=== PATIENT | male | born 1990 | race Caucasian/White ===

== ENCOUNTER 2022-04-02 12:59 | Emergency (ER) | payer MEDICAID, SELFPAY ==
[2022-04-02 13:00] VITALS: BP 146/103; PULSE 115; RESP 18; TEMP 36.6; O2SAT 99; BMI 23.6
--- NOTE | 2022-04-02 13:40 | EDS_ITS ---
HPI History of Present Illness Chief Complaint: Dental Detail of Chief Complaint: Left lower jaw dental pain for weeks. Informant: patient Onset/Context/Timing Onset: Weeks Context: Gradual Onset Timing: Continuous Current Severity: Mild Maximum Severity: Mild Associated Symptoms Assocated Symptom - Dental: jaw swelling; Negative for fever, face swelling, cold sensitivity or hot sensitivity Narrative Narrative: 31-year-old male no seen past medical history. States he has very poor dentition. Has had left lower jaw dental pain and mild swelling. Was seen in urgent care several weeks ago and started on antibiotic and he is finished that now and is complaining recurrent pain. Denies any fever or chills. No nausea, vomiting or diarrhea. Reportedly may have a penicillin allergy. Prior similar symptoms: Yes Recent Illness/Hospitalization: No PFSH PFSH Medical History no medical history no medical history Home Medications cephalexin 500 mg capsule 500 mg PO TID #30 caps 02/22/22 [Rx Last Taken Unknown] clindamycin HCl 150 mg capsule (Cleocin HCl) 300 mg PO Q6H 10 days #80 caps 04/02/22 [Rx Last Taken Unknown] Allergy/AdvReac Type Severity Reaction Status Date / Time Penicillins Allergy Other Verified 04/02/22 13:02 Surgical History H/O knee surgery Social History Smoking Status: Current every day smoker tobacco type: cigarettes alcohol intake: current alcohol intake frequency: other ROS ROS ED ROS Narrative Dental pain. Review of Systems ROS Unobtainable: Denies due to encephalopathy Constitutional Constitutional ED: Denies chills or fever(s) Eyes Eyes: Denies blurry vision ENT ENT ED: Denies ear pain Cardiovascular Cardiovascular: Denies chest pain or palpitations Respiratory/Chest Respiratory/Chest: Denies cough or dyspnea Gastrointestinal Gastrointestinal: Denies abdominal pain Genitourinary Genitourinary ED: Denies dysuria or hematuria Musculoskeletal Musculoskeletal: Denies arthralgias Integumentary Denies abscess or Abrasions Neurologic Neurologic: Denies headache(s) Psychiatric Psychiatric: Denies anxiety Endocrine Endocrinology: Denies cold intolerance Hematologic/Lymphatic Hematologic/Lymphatic: Denies easy bleeding Allergic/Immunologic Allergic/Immunologic ED: Reports mouth swelling; Denies tongue swelling EXAM Physical Exam Narrative Exam Narrative: 31-year-old male. Vital signs stable afebrile. H EENT exam he has no upper dentition. His lower dentition is in very poor shape. Multiple missing teeth. Decaying teeth. Cavities. No abscess. Gingival swelling. Nothing to drain. Minimal swelling at the left lower jaw. No trouble opening or closing his mouth. No trismus. The floor of his mouth is nontender nonswollen. Posterior pharynx is normal. No trouble swallowing or breathing. Neck nontender no lymphadenopathy. Lungs clear to auscultation. Heart regular rhythm no murmur. Otherwise exam unremarkable. Const Vital Signs: 04/02/22 13:00 Temperature 98 F Temperature Source Temporal Pulse Rate 115 H Respiratory Rate 18 Blood Pressure 146/103 H Blood Pressure Mean 117 Pulse Ox 99 Oxygen Delivery Method Room Air Positive well nourished and well developed; Negative for obese, cachectic, contractures or unkempt General Appearance ED: well developed and NAD; Negative for unkempt, cachectic, contractures or pallor Nutritional Appearance: Negative for cachectic or obese HEENT Reports other HEENT Narrative: No upper teeth. Lower teeth in very poor shape. Decay, cavities and gingival swelling. No abscess. No trismus. Floor of his mouth is unremarkable. other; Negative for trauma or tenderness Face and Sinus: sinuses nontender Mouth ED: Yes oral and palatal mucosa abnormal Mouth: oral and palatal mucosa abnormal Teeth and Gingiva: abnormal tooth and associated gingiva, caries, gingiva abnormal, poor dentition and teeth discoloration Throat: posterior oropharynx normal Eyes PERRL and EOMs intact bilaterally General Eye ED: Negative for pale conjunctiva or scleral icterus Neck no lymphadenopathy, supple and no JVD General: normal visual inspection; Negative for anterior neck swelling, tenderness or submandibular swelling Lymph Lymphatic: no lymphadenopathy noted; Negative for lymphadenopathy Chest Wall inspection of chest normal and palpation of chest normal Resp normal respiratory effort, no retractions and clear to auscultation bilaterally Cardio regular rate, regular rhythm, S1 normal heart sound, S2 normal heart sound and no murmurs Jugular Venous Distention: Negative for other Palpation: Negative for palpable S3 Rate: Negative for bradycardia or tachycardic Rhythm: Negative for abnormal rhythm GI normal to inspection, nondistended, normoactive bowel sounds, non-tender, non- distended and no masses Inspection: Negative for other Palpation: soft Back/Spine no CVA tenderness General Back: Negative for CVA tenderness Cervical Spine: Negative for other Thoracic Spine / Upper Back: Negative for thoracic spinal tenderness or paraspinal muscle tenderness Extremity normal to inspection and no joint enlargement General Extremety ED: Negative for edema General Extremity: Negative for edema Neuro oriented x3, CN's II-XII intact bilaterally, moves all extremities and no focal motor deficits Sensorium / Orientation: alert, oriented to person, oriented to place and oriented to time Motor Exam: strength 5/5 throughout Psych mental status grossly normal Appearance: Negative for unkempt Attitude: No agitated Mood & Affect: Negative for depressed, anxious or tearful Skin no rashes or lesions noted and no wounds General Skin Exam: Negative for pallor MDM MDM MDM Narrative Medical decision making narrative: 31-year-old male with very poor dentition with gingivitis. No abscess. Reportedly has a penicillin allergy. Has insurance to pay for his prescription. Has an appointment at [facility] in 2 days. He will be started on clindamycin 150 mg 4 times a day for 10 days. Tylenol and Motrin for pain. Warm salt water gargling. Discharge Plan Triage Chief Complaint: Dental ED Provider: Dale Carranza Dx/Rx/DC Orders Clinical Impression: Chronic dental pain, Dental caries, Dental infection, Gingivitis Instructions: ED Dental Pain, ED Dental Cavity Prescriptions: New clindamycin HCl [Cleocin HCl] 150 mg capsule 300 mg PO Q6H 10 Days Qty: 80 0RF No Action cephalexin 500 mg capsule 500 mg PO TID Qty: 30 0RF Primary Care Provider: Care Physician,No Primary Referrals: Christian Pastor MD [Non-Staff] - Activity Restrictions/Additional Instructions: The antibiotic clindamycin 4 times a day for 10 days. Warm salt water gargling. Tylenol and Motrin for pain Follow-up with your dental appointment in 2 days. Disposition Disposition: Home, Self Care
[2022-04-02] MEDS: Clindamycin HCl 150 MG Capsule 300 MG PO (13:50)
[2022-04-02 13:52] VITALS: BP 139/88; PULSE 76; RESP 15; O2SAT 98
== END 2022-04-02 13:53 | disposition home or self-care (01) ==
PROVIDERS: Emergency Provider Emergency Medicine; Visit Provider Emergency Medicine
DX: K04.7 Periapical abscess without sinus (principal); F17.210 Nicotine dependence, cigarettes, uncomplicated; K02.9 Dental caries, unspecified; R68.84 Jaw pain; K05.10 Chronic gingivitis, plaque induced; G89.29 Other chronic pain
CPT/HCPCS: 99283